=== PATIENT | male | born 1980 | race Caucasian/White ===

== ENCOUNTER 2016-08-22 08:43 | Emergency (ER) | payer OTHER ==
[2016-08-22] MEDS ORDERED: IBUPROFEN 600 MG TABLET PO STA (09:41)
[2016-08-22] MEDS ORDERED: ACETAMINOPHEN 325 MG TABLET PO STA (09:41)
[2016-08-22] MEDS ORDERED: IBUPROFEN 600 MG TABLET PO ONE (09:43)
[2016-08-22] MEDS ORDERED: ACETAMINOPHEN 325 MG TABLET PO ONE (09:43)
== END 2016-08-22 12:14 | disposition home or self-care (01) ==
DX: S20.212A Contusion of left front wall of thorax, initial encounter (principal); W55.22XA Struck by cow, initial encounter; Y92.79 Other farm location as the place of occurrence of the external cause; Y99.0 Civilian activity done for income or pay; F17.200 Nicotine dependence, unspecified, uncomplicated; S30.1XXA Contusion of abdominal wall, initial encounter
CPT/HCPCS: 1040M; 71250; 74176; 99283; 99284; A9270

== ENCOUNTER 2016-10-26 10:00 | Outpatient (CLI) | payer OTHER ==
--- NOTE | 2016-10-26 15:51 | MRI Report ---
EXAM: LEFT SHOULDER MRI WITHOUT CONTRAST EXAM DATE: 10/26/2016 08:58 AM. CLINICAL HISTORY: CRUSH/CONTUSION L CHEST BELOW SHOULDER. COMPARISON: None. TECHNIQUE: Multiplanar, multisequence T1-weighted and fluid-sensitive sequences of the shoulder witho ut contrast. Other: None. FINDINGS: Rotator cuff: Rotator cuff tendons appear intact without evidence of significant tendinosis or rotato r cuff tear. No rotator cuff muscle atrophy or fatty replacement. Long head biceps tendon: Intact demonstrating normal course, signal and morphology. Labrum: Intact. No tear is identified. Bones and articular surfaces: No significant articular cartilage abnormalities are seen. There are mu ltiple partially visualized healing posterolateral and lateral upper left rib fractures. Acromioclavicular joint: Unremarkable appearance. Type II acromion. IMPRESSION: 1. Multiple healing posterior and lateral upper left rib fractures partially visualized. 2. Otherwise normal shoulder MRI. [facility] SE[facility] Referring Provider Line: [phone] SITE ID: [id number]
== END 2016-10-26 10:15 ==
LOC: DI 10:00
PROVIDERS: ATTEND Family Medicine
DX: S22.42XA Multiple fractures of ribs, left side, initial encounter for closed fracture (principal)

== ENCOUNTER 2017-09-04 19:43 | Emergency (ER) | payer MEDICAID ==
--- NOTE | 2017-09-04 20:34 | XRAY Preliminary Report ---
Exam: XR WRIST 4 VIEW RT IMPRESSION: Acute comminuted impacted right distal radius fracture with moderate dorsal displacement and angulation. [facility] SITE ID: [id number]
--- NOTE | 2017-09-04 20:34 | XRAY Report ---
EXAM: RIGHT WRIST RADIOGRAPHY EXAM DATE: 09/04/2017 08:16 PM. CLINICAL HISTORY: Fall.Wrist pain. COMPARISON: None. TECHNIQUE: 4 views. FINDINGS: Acute comminuted impacted right distal radius fracture with moderate dorsal displacement an d angulation. Adjacent soft tissue swelling. No dislocation. IMPRESSION: Acute comminuted impacted right distal radius fracture with moderate dorsal displacement and angulation. [facility] Referring Provider Line: [phone] SITE ID: [id number]
[2017-09-04] MEDS ORDERED: oxyCODONE/ACET 5/325 Prepack 4 PO STA (21:15)
--- NOTE | 2017-09-04 21:17 | ED Physician Documentation ---
PD HPI UPPER EXT INJURY - Stated complaint Stated Complaint: WRIST INJURY - Chief complaint Chief Complaint: Trauma Ext - History obtained from History obtained from: Patient - History of Present Illness Location: Right, Wrist Type of injury: Fall Where injury occurred: Home Timing - onset: Today Timing - details: Abrupt onset Worsened by: Moving, Palpating Similar symptoms before: Has not had sx before Recently seen: Not recently seen - Additonal information Additional information: Patient is a 37 year old male presenting to the emergency department for right sided wrist pain. Patient was mowing his yard and the mower was on a hill and tipped, he started to fall so he put his arm out to stop himself and landed on his wrist. Patient denies any other trauma at this time. Review of Systems Ten Systems: 10 systems reviewed and negative Musculoskeletal: reports: Extremity pain, Joint pain, Extremity swelling, Joint swelling Neurologic: denies: Numbness PD PAST MEDICAL HISTORY - Past Medical History Past Medical History: No Musculoskeletal: Other - Past Surgical History Past Surgical History: Yes - Present Medications Home Medications: Ambulatory Orders Medication Instructions Recorded Confirmed Oxycodone HCl/Acetaminophen 1 - 2 each PO Q6H PRN #10 tablet 09/04/17 [Percocet 5-325 mg Tablet] - Allergies Allergies/Adverse Reactions: Allergies Allergy/AdvReac Type Severity Reaction Status Date / Time Cephalosporins Allergy Respiratory Verified 09/04/17 20:45 - Social History Does the pt smoke?: Yes Smoking Status: Current every day smoker Does the pt drink ETOH?: No Does the pt have substance abuse?: No - Immunizations Immunizations are current?: Yes - POLST Patient has POLST: No PD ED PE NORMAL - Vitals Vital signs reviewed: Yes - General General: Alert and oriented X 3 - HEENT HEENT: Atraumatic - Cardiac Cardiac: RRR - Respiratory Respiratory: No respiratory distress - Abdomen Abdomen: Non distended - Derm Derm: Normal color - Neuro Neuro: Alert and oriented X 3 PD ED PE EXPANDED - Cardiac Cardiac: Normal pulses, Radial strong equal. No: Prolonged cap refill - Extremities Extremities: Right wrist (tenderness swelling and deformity of rigth wrist), Motor intact, Sensory intact, Vascular intact, Tendon intact Results - Vitals Vitals: Vital Signs - 24 hr 09/04/17 19:56 Temperature 36.0 C L Heart Rate 105 H Respiratory 18 Rate Blood Pressure 175/118 H O2 Saturation 98 Oxygen O2 Source Room air - Rads (name of study) right wrist Radiology: Final report received (distal radial fracture) PD MEDICAL DECISION MAKING - ED course Complexity details: reviewed old records, reviewed results, re-evaluated patient , considered differential, d/w patient ED course: Patient was seen and examined at bedside. Patient was sent for imaging. When patient returned the results were reviewed. patient was found to have a distal radial fracture. patient was neurovascularly intact. Patient was placed in a sugar tong splint and was stable for discharge with orthopedic follow up. Departure - Departure Disposition: Home, Self Care Clinical Impression: Distal radius fracture, right Condition: Good Instructions: ED Fx Forearm Radius Ulna No Redu Requ Follow-Up: Fox Mccarthy MD [Provider Admit Priv/Credential] - Prescriptions: Oxycodone HCl/Acetaminophen [Percocet 5-325 mg Tablet] 1 - 2 each PO Q6H PRN # 10 tablet PRN Reason: pain Comments: Your symptoms today are being caused by a fracture of your radius. You were placed in a splint but you will need to follow up with the orthopedic doctor. You should continue to elevate you wrist and ice the area at least 4 times a day. You can take tylenol for pain, and percocet for breakthrough pain. You may return to the emergency department at any time for new, worsening or uncontrollable symptoms.
[2017-09-04 21:39] VITALS: BP 157/111
== END 2017-09-04 21:33 | disposition home or self-care (01) ==
LOC: ED 19:43
DX: S52.501A Unspecified fracture of the lower end of right radius, initial encounter for closed fracture (principal); W17.89XA Other fall from one level to another, initial encounter; Y93.H9 Activity, other involving exterior property and land maintenance, building and construction; Y92.017 Garden or yard in single-family (private) house as the place of occurrence of the external cause; F17.200 Nicotine dependence, unspecified, uncomplicated
CPT/HCPCS: 29105; 99283

== ENCOUNTER 2017-09-21 05:58 | Day surgery (SDC) | payer MEDICAID ==
[2017-09-21] MEDS ORDERED: ceFAZolin 2 GM/50 ML 2 GM/50 ML BAG IV ONE (06:39)
[2017-09-21] MEDS ORDERED: SCOPOLAMINE PATCH TOP ONE (07:08)
[2017-09-21] MEDS ORDERED: LACTATED RINGERS 1,000 ML IV ONE ×2 (07:11→08:45)
[2017-09-21] MEDS ORDERED: BUPIVACAINE 0.5%-EPI 1:200000 PF 30 ML VIAL ONE (07:18)
[2017-09-21] MEDS ORDERED: CLINDAMYCIN 600 MG/50 ML 50 ML IV ONE (07:41)
[2017-09-21] MEDS ORDERED: BUPIVACAINE 0.5%-EPI 1:200000 PF 30 ML VIAL SUBQ ONE ×2 (08:02)
[2017-09-21] MEDS ORDERED: MIDAZOLAM 2 MG/2 ML VIAL IVP ONE (08:20)
[2017-09-21] MEDS ORDERED: ACETAMINOPHEN 1,000 MG/100 ML 100 ML IV ONE (08:20)
[2017-09-21] MEDS ORDERED: diphenhydrAMINE INJ 50 MG/ML VIAL IVP ONE (08:20)
[2017-09-21] MEDS ORDERED: DEXAMETHASONE 4 MG/ML VIAL IVP ONE (08:20)
[2017-09-21] MEDS ORDERED: ROCURONIUM 50 MG/5 ML VIAL IVP ONE (08:20)
[2017-09-21] MEDS ORDERED: KETOROLAC 30 MG/ML VIAL IVP ONE (08:20)
[2017-09-21] MEDS ORDERED: PROPOFOL 200 MG/20 ML VIAL IVP ONE (08:20)
[2017-09-21] MEDS ORDERED: ONDANSETRON 4 MG/2 ML VIAL IVP ONE (08:20)
[2017-09-21] MEDS ORDERED: METOCLOPRAMIDE 10 MG/2 ML VIAL IVP ONE (08:20)
[2017-09-21] MEDS ORDERED: fentaNYL 100 MCG/2 ML VIAL IVP ONE (08:20)
[2017-09-21] MEDS ORDERED: LIDOCAINE-MPF 2% 5 ML VIAL IM ONE (08:20)
[2017-09-21] MEDS: fentaNYL 100 MCG/2 ML VIAL ONE ×2 (09:25→09:40)
[2017-09-21] MEDS: LABETALOL 20 MG/4 ML SYRINGE IVP ONE ×2 (09:28→09:43)
[2017-09-21] MEDS ORDERED: HYDROcod/ACETAM 5/325 MG TABLET ONE (10:25)
[2017-09-21 10:49] VITALS: BP 154/98
--- NOTE | 2017-09-21 11:16 | OPERATIVE REPORT ---
DATE OF SERVICE: 09/21/2017 Physician: Patrica Pickens MD DATE OF SURGERY: 09/21/2017 PREOPERATIVE DIAGNOSIS: Right radius comminuted fracture. POSTOPERATIVE DIAGNOSIS: Right radius comminuted fracture. PROCEDURE PERFORMED: Open reduction, internal fixation of right distal radius. SURGEON: Patrica Pickens MD ANESTHESIA: General by Rashmi Hinds CRNA. INDICATIONS FOR SURGERY: Nick is a 37-year-old male who is status post a fall onto his outstretched right wrist causing a comminuted Colles fracture. The patient's fracture was malpositioned, angulated, and shortened and surgery was recommended for rastafari of more normal anatomy. FINDINGS AT SURGERY: The patient's fracture was significantly impacted and was somewhat difficult to reduce, but was able to be restored as far as length and alignment fairly well. OPERATIVE PROCEDURE: The patient was taken to the operating room and was given a general anesthetic. He was given clindamycin IV. His forearm and hand were sterilely prepped and draped in standard fashion. A tourniquet pressure of 250 selected and under tourniquet control for 37 minutes the surgery was undertaken with a volar radial 3-1/2 inch incision directly over the flexor carpi radialis and dissection beneath this directly down to the pronator quadratus and below this to the wrist capsule and the volar radius. The fracture was identified and soft tissue removed for better visualization and pronator reflected away. The fracture was ultimately able to be reduced by using a Lipan elevator to leverage the fragment back into its anatomic length and alignment. There was some comminution with the distal aspect of the fracture represented by 3 main components in the proximal shaft. The DVR system was used selecting a fairly long plate, but a narrow one distally and applying this to the volar radius, using it as a corrective device for volar tilt, applying it with screws distally and then leveraging and lowering the plate down to the radius to cause correction of volar tilt. The plate was fixed initially with nonlocking screws proximal and distal and then proceeding afterwards to locking both proximal and distal. Screw lengths were carefully measured and position of the fracture was observed with the C-arm. Satisfactory alignment and fixation were achieved. The wound was irrigated thoroughly. The pronator quadratus was repaired back with Vicryl suture, skin with interrupted Vicryl suture and Monocryl and after this sterile dressing and a sugar-tong splint were applied. The patient was taken to recovery room in stable condition. ESTIMATED BLOOD LOSS: The estimated blood loss for the procedure was very minimal, less than 10 mL COMPLICATIONS: None. COUNTS: Sponge and needle counts were correct. TD: 09/21/2017 10:25
== END 2017-09-21 05:59 | disposition home or self-care (01) ==
LOC: SDS 05:58
PROVIDERS: ATTEND Orthopaedic Surgery
PROC: 0PSH04Z Reposition Right Radius with Internal Fixation Device, Open Approach (ICD-10-PCS; principal; 2017-09-21 07:30)
DX: S52.531A Colles' fracture of right radius, initial encounter for closed fracture (principal)
CPT/HCPCS: 25609; A9270; C1713; J0131; J1200; J2765; J3490; J7120

== ENCOUNTER 2020-10-11 15:41 | Emergency (ER) | payer MEDICAID ==
[2020-10-11] MEDS ORDERED: LORazepam 1 MG TABLET PO STA (15:58)
[2020-10-11] MEDS ORDERED: SODIUM CHLORIDE 0.9% 1,000 ML IV STA (15:58)
--- NOTE | 2020-10-11 16:01 | ED Physician Documentation ---
History of Present Illness - Stated complaint Stated Complaint: CHEST PAIN, - Additonal information Additional information: 40-year-old male presents the emergency department for evaluation of chest tightness left shoulder discomfort and feeling anxious. He states that he has not been feeling well for quite some time and worries that he may be having a panic attack but the left shoulder discomfort caused him concern. He took 2 Excedrin about an hour prior to arrival. He denies dyspnea on exertion or chest pain in particular. He is a heavy tobacco user and moderate drinker. Denies a history of hypertension coronary artery disease. Denies a family history of sudden or early cardiac disease coronary . Review of Systems Constitutional: denies: Fever, Chills Eyes: reports: Reviewed and negative Ears: reports: Reviewed and negative Nose: reports: Reviewed and negative Throat: reports: Reviewed and negative Cardiac: reports: Palpitations. denies: Pedal edema, Calf pain Respiratory: denies: Dyspnea, Cough GI: reports: Nausea, Vomiting. denies: Abdominal Pain : denies: Dysuria, Frequency, Hesitancy Skin: denies: Rash, Lesions Musculoskeletal: denies: Neck pain, Back pain Neurologic: denies: Generalized weakness, Focal weakness, Numbness Psychiatric: reports: Anxiety PD PAST MEDICAL HISTORY - Past Medical History Cardiovascular: None Respiratory: None Endocrine/Autoimmune: None GI: None : None HEENT: None Psych: Anxiety Musculoskeletal: None Derm: None - Past Surgical History Past Surgical History: Yes Ortho: Other - Present Medications Home Medications: Ambulatory Orders Medication Instructions Recorded Confirmed Aspirin/Acetaminophen/Caffeine 3 tab PO DAILY PRN 10/11/20 10/11/20 [Excedrin Migraine Caplet] Lisinopril [Zestril] 10 mg PO DAILY #30 tablet 10/11/20 hydrOXYzine HCL [Hydroxyzine HCl] 25 mg PO TID PRN #30 tablet 10/11/20 - Allergies Allergies/Adverse Reactions: Allergies Allergy/AdvReac Type Severity Reaction Status Date / Time Cephalosporins Allergy Respiratory Verified 10/11/20 16:08 - Social History Does the pt smoke?: Yes Smoking Status: Current every day smoker Does the pt drink ETOH?: No Does the pt have substance abuse?: No - Immunizations Immunizations are current?: Yes - POLST Patient has POLST: No PD ED PE EXPANDED - General General: Alert, Disheveled, poorly kept, Other (diaphoretic) - Neck Neck: Supple w/out meningeal sx. No: Adenopathy - Cardiac Cardiac: Tachy, Radial strong equal, Cap refill < 2 sec. No: Murmur Present - Respiratory Respiratory: Clear to ausultation kirit. No: Distress, Labored - Abdomen Abdomen: Normal Bowel sounds. No: Tender to palpation - Extremities Extremities: Normal. No: Deformity, Tenderness, Pedal edema bilateral, Right calf TTP/cord, Left calf TTP/cord - Neuro Neuro: Alert and Oriented X 3, CNII-XII intact - GCS Eye Opening: Spontaneous Motor: Obeys Commands Verbal: Oriented Total: 15 - Psych Psych: Anxious, Pressured speech Results - Vitals Vitals: Vital Signs - 24 hr 10/11/20 10/11/20 10/11/20 15:42 16:09 16:28 Temperature 37.1 C Heart Rate 124 H 108 H 103 H Respiratory 22 15 10 L Rate Blood Pressure 178/100 H 189/113 H 170/110 H O2 Saturation 96 97 10/11/20 10/11/20 16:55 17:31 Temperature 37.0 C Heart Rate 106 H 106 H Respiratory 16 16 Rate Blood Pressure 165/120 H 179/114 H O2 Saturation 99 97 Oxygen O2 Source Room air - EKG (time done) 1547 Rate: Rate (enter#) (121) Rhythm: Sinus tachycardia [place]: Normal Intervals: Normal AL. No: Prolonged QT QRS: LVH Ischemia: Normal ST segments Compare to prior EKG: Old EKG unavailable Computer interpretation: Agree with computer - Labs Labs: Laboratory Tests 10/11/20 10/11/20 10/11/20 16:00 16:00 16:00 WBC 10.4 RBC 4.90 Hgb 15.7 Hct 46.4 MCV 94.7 H MCH 32.0 H MCHC 33.8 RDW 12.3 Plt Count 298 MPV 9.9 Neut # (Auto) 7.4 H Lymph # (Auto) 2.1 Taney # (Auto) 0.8 Eos # (Auto) 0.0 Baso # (Auto) 0.1 Absolute Nucleated RBC 0.00 Nucleated RBC % 0.0 D-Dimer Sodium 134 L Potassium 3.9 Chloride 97 L Carbon Dioxide 24 Anion Gap 13.0 BUN 11 Creatinine 0.8 Estimated GFR (MDRD) 107 Glucose 226 H Calcium 9.0 Total Bilirubin 0.7 AST 38 ALT 46 Alkaline Phosphatase 98 Troponin I High Sens 6.9 Total Protein 8.5 H Albumin 3.7 Globulin 4.8 H Albumin/Globulin Ratio 0.8 L Lipase 30 10/11/20 16:05 WBC RBC Hgb Hct MCV MCH MCHC RDW Plt Count MPV Neut # (Auto) Lymph # (Auto) Taney # (Auto) Eos # (Auto) Baso # (Auto) Absolute Nucleated RBC Nucleated RBC % D-Dimer 207.4 Sodium Potassium Chloride Carbon Dioxide Anion Gap BUN Creatinine Estimated GFR (MDRD) Glucose Calcium Total Bilirubin AST ALT Alkaline Phosphatase Troponin I High Sens Total Protein Albumin Globulin Albumin/Globulin Ratio Lipase - Rads (name of study) CXR Radiology: Final report received (normal for age) PD MEDICAL DECISION MAKING - ED course Complexity details: reviewed results, re-evaluated patient, d/w patient ED course: 40-year-old male presents to the emergency department for acute anxiety palpitations, diaphoresis and nausea. He is a heavy tobacco user as well as a moderate alcohol user. 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 Screening EKG shows a sinus tachycardia initially with a rate of 120. Prominent LVH but no ischemic changes. High-sensitivity troponin is negative. He had no pleuritic chest pain but given tachycardia could not rule out PE. Therefore a D-dimer was completed and it is not elevated. The patient was given 1 mg of Ativan which markedly reduced his anxiety and dropped his resting heart rate to just above 100. He was noted to be fairly hypertensive here in the emergency department. He was given 10 mg of lisinopril. Screening labs show no acute worrisome electrolyte abnormality though it is noted that he is hyperglycemic. However no findings to suggest hypertensive urgency/emergency. Normal renal function. No encephalopathy headache chest pain. I discussed with the patient that he should have testing to include a hemoglobin A1c to determine if he has diabetes given hyperglycemia. This gentleman will be started on lisinopril 10 mg daily as well as as needed hydroxyzine to help with anxiety. Advised very close follow-up with the [facility] clinic to establish care. Patient advised to discontinue tobacco when able. Emergent return precautions were discussed for chest pain, shortness of air, uncontrolled nausea vomiting or suddenly severe headache. Departure - Departure Disposition: 01 Home, Self Care Clinical Impression: Anxiety, Tachycardia, Hyperglycemia Hypertension Qualifiers: Hypertension type: unspecified Qualified Code(s): I10 - Essential (primary) hypertension Condition: Stable Record reviewed to determine appropriate education?: Yes Instructions: Hypertension Control, ED Anxiety Reaction Ch Follow-Up: [facility] [Provider Group] Prescriptions: hydrOXYzine HCL [Hydroxyzine HCl] 25 mg PO TID PRN #30 tablet PRN Reason: Anxiety Lisinopril [Zestril] 10 mg PO DAILY #30 tablet Comments: Nick you were seen today in the emergency department for palpitations, chest discomfort and anxiety. Your screening EKG does not show signs that you are having a heart attack though there are changes that are consistent with long-term high blood pressure. Your blood pressure is elevated today in the emergency department. Please fill the prescription for the lisinopril and begin taking once daily as directed. Your chest x-ray does not show any worrisome abnormalities. Your screening labs were essentially normal including the labs to check for a heart attack or a blood clot in your lungs. The only worrisome abnormality was an elevated blood glucose of 226. This can be a stress reaction but you should be checked for diabetes. Please schedule an appointment at [facility] to establish care and be rechecked within 1 to 2 weeks. It is going to be important in the long-term that you discontinue tobacco use. You may need to be referred for an outpatient echocardiogram or stress test of your heart but that does not need to be completed today. I have prescribed a medication called hydroxyzine. It can be used 2-3 times a day to help with stress and panic. Please use cautiously it can make you somewhat sleepy And possibly unsafe to drive. If at any point you are developing chest pain, have uncontrolled vomiting or anxiety please return to the ER. Discharge Date/Time: 10/11/20 17:33
[2020-10-11 16:04] LABS: BASOPHILS # (AUTO) 0.1 10^3/uL (0.0-0.1); BASOPHILS % (AUTO) 0.6 %; EOSINOPHILS % (AUTO) 0.3 %; HCT - HEMATOCRIT 46.4 % (42.0-52.0); HGB - HEMOGLOBIN 15.7 g/dL (14.0-18.0); LYMPHOCYTES # (AUTO) 2.1 10^3/uL (1.5-3.5); LYMPHOCYTES % (AUTO) 20.4 %; MEAN CORPUSCULAR HGB CONC 33.8 g/dL (32.0-36.0); MEAN CORPUSCULAR VOLUME 94.7 fL (80.0-94.0); MEAN PLATELET VOLUME 9.9 fL (7.4-11.4); MONOCYTES # (AUTO) 0.8 10^3/uL (0.0-1.0); MONOCYTES % (AUTO) 7.7 %; NEUTROPHILS # (AUTO) 7.4 10^3/uL (1.5-6.6); NEUTROPHILS % (AUTO) 70.7 %; PLT - PLATELET COUNT 298 10^3/uL (130-450); RED CELL DISTRIBUTION WIDTH 12.3 % (12.0-15.0); WHITE BLOOD COUNT 10.4 x10^3/uL (4.8-10.8)
--- NOTE | 2020-10-11 16:23 | XRAY Report ---
PROCEDURE: Chest 1 View X-Ray INDICATIONS: Chest Pain TECHNIQUE: One view of the chest was acquired. COMPARISON: Correlation is made with prior chest CT 08/22/2016 FINDINGS: Surgical changes and devices: None. Lungs and pleura: On the semiupright images, no large pneumothorax or large pleural effusions can be seen. No focal infiltrates are seen. Mediastinum: Mediastinal contours appear normal. Heart size is normal. Bones and chest wall: No suspicious bony lesions. Overlying soft tissues appear unremarkable. IMPRESSION: Portable chest within normal limits for age. Reviewed by: Sheldon Gaffney MD on 10/11/2020 3:21 PM AKFERCHO Approved by: Sheldon Gaffney MD on 10/11/2020 3:21 PM AKFERCHO Station ID: [id number]
[2020-10-11 16:25] LABS: ALBUMIN 3.7 g/dL (3.2-5.5); ALBUMIN/GLOBULIN RATIO 0.8 (1.0-2.2); BILIRUBIN,TOTAL 0.7 mg/dL (0.2-1.0); CREATININE 0.8 mg/dL (0.6-1.2); POTASSIUM 3.9 mmol/L (3.5-5.0); TOTAL PROTEIN 8.5 g/dL (6.7-8.2)
--- OUTSIDE RECORDS SUMMARY | 2020-10-11 16:30 | EXTERNAL MEDICAL SUMMARY RPT | Continuity of Care Document ---
:1980 Demographics Phone Unavailable Preferred Language Unknown Marital Status Unknown Quaker Affiliation Unknown Race Unknown Ethnic Group Unknown Author Organization [place] Address [address] [place] [address] Phone Allergies Encounters Medications Problems Results
[2020-10-11] MEDS ORDERED: lisinopriL 5 MG TABLET PO STA (16:33)
[2020-10-11 17:33] VITALS: BP 179/114
== END 2020-10-11 17:33 | disposition home or self-care (01) ==
LOC: ED 15:41
DX: I10 Essential (primary) hypertension (principal); R00.0 Tachycardia, unspecified; F41.9 Anxiety disorder, unspecified; R73.9 Hyperglycemia, unspecified; Z72.0 Tobacco use
CPT/HCPCS: 36415; 71045; 80053; 83690; 84484; 85025; 85379; 93005; 96360; 99283; 99284; A9270; J8499

== ENCOUNTER 2020-11-07 12:25 | Outpatient (CLI) | payer MEDICAID ==
--- NOTE | 2020-11-07 15:52 | XRAY Report ---
PROCEDURE: Ankle 3 View LT INDICATIONS: ANKLE INJURY TODAY TECHNIQUE: 3 views of the ankle were acquired. COMPARISON: None FINDINGS: Bones: There is a mildly to moderately displaced fracture seen of the distal fibula, which is seen at the level of the syndesmosis. The syndesmosis appears minimally widened. There is minimal widening o f ankle mortise. No suspicious bony lesions. The talar dome demonstrates an unremarkable appearance . An accessory ossicle is seen, an os trigonum. Soft tissues: Soft tissue swelling is seen, which is most prominent laterally. IMPRESSION: Mildly to moderately displaced distal fibular fracture, with minimal associated widening of the syndesmosis and ankle mortise. Reviewed by: Sheldon Gaffney MD on 11/07/2020 2:51 PM DEMI Approved by: Sheldon Gaffney MD on 11/07/2020 2:51 PM DEMI Station ID: [id number]
== END 2020-11-07 12:26 | disposition home or self-care (01) ==
LOC: DI.N 12:25
PROVIDERS: ATTEND Physician Assistant Medical
DX: S82.832A Other fracture of upper and lower end of left fibula, initial encounter for closed fracture (principal)

== ENCOUNTER 2020-12-21 13:45 | Outpatient (CLI) | payer MEDICAID ==
--- NOTE | 2020-12-21 14:36 | XRAY Report ---
PROCEDURE: Ankle 3 View LT INDICATIONS: OTHER FX OF LEFT LOWER LEG TECHNIQUE: 3 views of the ankle were acquired. COMPARISON: X-ray left ankle, 3 views, 11/07/2020. FINDINGS: Bones: There is a nondisplaced oblique fracture in the distal fibula. Mild callus formation is presen t, consistent with healing. The alignment is stable. Ankle mortise is normally aligned. No suspicio us bony lesions. Soft tissues: No tibiotalar joint effusion. Achilles tendon appears normal. IMPRESSION: Healing fracture of the distal fibula. Reviewed by: Camron Miles MD on 12/21/2020 2:34 PM PDT Approved by: Camron Miles MD on 12/21/2020 2:34 PM PDT Station ID: [id number]
== END 2020-12-21 23:59 | disposition home or self-care (01) ==
LOC: DI.N 13:45
PROVIDERS: ATTEND Orthopaedic Surgery
DX: S82.832D Other fracture of upper and lower end of left fibula, subsequent encounter for closed fracture with routine healing (principal)

== ENCOUNTER 2021-01-05 14:08 | Emergency (ER) | payer MEDICAID ==
[2021-01-05] MEDS ORDERED: LORazepam 1 MG TABLET PO STA (14:28)
--- NOTE | 2021-01-05 14:44 | ED Physician Documentation ---
History of Present Illness - Stated complaint Stated Complaint: CHEST PX - Chief complaint Chief Complaint: Cardiac - Additonal information Additional information: 40-year-old male presents the emergency department for evaluation of anxiety and chest pain. He reports that his stomach has been upset and has had diarrhea. 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 He was unable to get a primary care appointment until late December. I did see this gentleman for anxiety and chest pain in mid September. His EKG at that time was nonischemic. He was advised to resume his lisinopril for his history of hypertension. Patient just states that he does not feel well. He is unsure what is wrong however. He is requesting lorazepam before we attempt to the IV blood draw. Review of Systems Constitutional: denies: Fever, Myalgias Eyes: reports: Reviewed and negative Ears: reports: Reviewed and negative Nose: reports: Reviewed and negative Throat: reports: Reviewed and negative Cardiac: reports: Chest pain / pressure, Palpitations. denies: Pedal edema, Calf pain Respiratory: denies: Dyspnea, Cough GI: reports: Vomiting, Diarrhea. denies: Abdominal Pain : denies: Dysuria, Frequency, Hesitancy Skin: reports: Reviewed and negative Musculoskeletal: reports: Reviewed and negative Neurologic: reports: Reviewed and negative Psychiatric: reports: Anxiety PD PAST MEDICAL HISTORY - Past Medical History Past Medical History: Yes Cardiovascular: Hypertension Respiratory: None Endocrine/Autoimmune: None GI: None : None HEENT: None Psych: Anxiety Musculoskeletal: Other Derm: None - Past Surgical History Past Surgical History: Yes Ortho: Other - Present Medications Home Medications: Ambulatory Orders Medication Instructions Recorded Confirmed Aspirin/Acetaminophen/Caffeine 3 tab PO DAILY PRN 10/11/20 01/05/21 [Excedrin Migraine Caplet] Lisinopril [Zestril] 10 mg PO DAILY #30 tablet 10/11/20 01/05/21 Omeprazole 40 mg PO DAILY #30 01/05/21 hydrOXYzine HCL [Hydroxyzine HCl] 25 mg PO TID PRN #20 tablet 01/05/21 - Allergies Allergies/Adverse Reactions: Allergies Allergy/AdvReac Type Severity Reaction Status Date / Time Cephalosporins Allergy Respiratory Verified 01/05/21 14:11 - Social History Does the pt smoke?: Yes Smoking Status: Current every day smoker Does the pt drink ETOH?: Yes Does the pt have substance abuse?: Yes Substance Use and Type: Marijuana - Immunizations Immunizations are current?: Yes - POLST Patient has POLST: No PD ED PE EXPANDED - General General: Alert, No acute distress, Well developed/nourished - Neck Neck: Supple w/out meningeal sx. No: Adenopathy - Cardiac Cardiac: Regular Rate, Radial strong equal, Cap refill < 2 sec. No: Murmur Present - Respiratory Respiratory: Clear to ausultation kirit. No: Distress, Labored - Abdomen Abdomen: Normal Bowel sounds. No: Tender to palpation - Derm Derm: Normal color, Warm and dry. No: Rash Results - Vitals Vitals: Vital Signs - 24 hr 01/05/21 14:12 Temperature 36.5 C Heart Rate 103 H Respiratory 20 Rate Blood Pressure 187/124 H O2 Saturation 100 Oxygen O2 Source Room air - EKG (time done) 1412 Rate: Rate (enter#) (106) Rhythm: Sinus tachycardia [place]way: Normal Intervals: Normal VT, Prolonged QT Ischemia: Non specific changes Compare to prior EKG: Unchanged from prior EKG Computer interpretation: Agree with computer - Labs Labs: Laboratory Tests 01/05/21 01/05/21 01/05/21 15:15 15:15 15:15 WBC 9.4 RBC 4.31 L Hgb 13.9 L Hct 40.1 L MCV 93.0 MCH 32.3 H MCHC 34.7 RDW 11.9 L Plt Count 368 MPV 9.7 Neut # (Auto) 7.0 H Lymph # (Auto) 1.6 Love # (Auto) 0.7 Eos # (Auto) 0.0 Baso # (Auto) 0.1 Absolute Nucleated RBC 0.00 Nucleated RBC % 0.0 Sodium 130 L Potassium 4.0 Chloride 94 L Carbon Dioxide 24 Anion Gap 12.0 BUN 14 Creatinine 0.7 Estimated GFR (MDRD) 124 Glucose 192 H Calcium 9.4 Total Bilirubin 0.7 AST 18 ALT 20 Alkaline Phosphatase 80 Troponin I High Sens 4.5 Total Protein 8.0 Albumin 3.7 Globulin 4.3 H Albumin/Globulin Ratio 0.9 L Lipase 31 - Rads (name of study) CXR Radiology: Final report received (no acute cardiopulmonary process) PD MEDICAL DECISION MAKING - ED course Complexity details: reviewed results, re-evaluated patient, considered differential, d/w patient ED course: This is a very well-appearing 40-year-old male who is quite anxious and presents the emergency department for evaluation of left upper chest pain. Described as pressure-like and nonradiating. 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 His screening EKG today is nonischemic and unchanged from his September visit. He does have an appointment within the next month to follow-up with his primary care provider. High-sensitivity troponin is negative today. Chest x-ray is also unrevealing certainly no focal signs of pneumonia no pneumothorax or cardiomegaly. he is also reporting some diarrhea intermittently fro a few days with fatigue. no abdominal pain pain. Given that he is unvacc inated for COVID-19 a COVID-19 screen is pending. This gentleman is quite anxious though that did improve with lorazepam. We discussed that anxiety can contribute to pain as well as some of the minor stomach discomfort. We will also recommend omeprazole. Worrisome return precautions were discussed for syncope, leg swelling, and exertional shortness of air Departure - Departure Disposition: Home, Self Care Clinical Impression: Anxiety Chest pain Qualifiers: Chest pain type: unspecified Qualified Code(s): R07.9 - Chest pain, unspecified Condition: Stable Record reviewed to determine appropriate education?: Yes Instructions: ED Chest Pain Atypical Unkn Cause Prescriptions: hydrOXYzine HCL [Hydroxyzine HCl] 25 mg PO TID PRN #20 tablet PRN Reason: Anxiety Omeprazole 40 mg PO DAILY #30 Comments: Nick you are seen today in the ER for some anxiety as well as chest pains. Your chest x-ray is unremarkable. Your EKG does not show signs that you are having a heart attack. Your screening labs also did not show any concerns of stress with your heart. However given your history of high blood pressure as well as tobacco use you are higher risk for heart disease so it is very important you follow-up with your primary care doctor. You may benefit from an outpatient stress test and/or echocardiogram. However stress can cause a lot of the symptoms you are having such as the diarrhea and the chest pain. I have prescribed hydroxyzine that you can take 2- 3 times a day for anxiety. I do recommend periods of meditation and quiet time to see if that can help improve your symptoms. A COVID-19 test is pending for you today. We will notify you only if it is positive.
--- NOTE | 2021-01-05 14:49 | XRAY Report ---
PROCEDURE: Chest 1 View X-Ray INDICATIONS: Chest Pain TECHNIQUE: One view of the chest was acquired. COMPARISON: 10/11/2020 FINDINGS: Surgical changes and devices: None. Lungs and pleura: No pleural effusions or pneumothorax. Lungs are clear. Mediastinum: Mediastinal contours appear normal. Heart size is normal. Bones and chest wall: No suspicious bony lesions. Overlying soft tissues appear unremarkable. IMPRESSION: No acute cardiopulmonary disease process. Reviewed by: Quyen Miller MD, PhD on 01/05/2021 2:48 PM PDT Approved by: Quyen Miller MD, PhD on 01/05/2021 2:48 PM PDT Station ID: [id number]
[2021-01-05 15:26] LABS: BASOPHILS # (AUTO) 0.1 10^3/uL (0.0-0.1); BASOPHILS % (AUTO) 0.5 %; EOSINOPHILS % (AUTO) 0.3 %; HCT - HEMATOCRIT 40.1 % (42.0-52.0); HGB - HEMOGLOBIN 13.9 g/dL (14.0-18.0); LYMPHOCYTES # (AUTO) 1.6 10^3/uL (1.5-3.5); LYMPHOCYTES % (AUTO) 16.6 %; MEAN CORPUSCULAR HEMOGLOBIN 32.3 pg (27.0-31.0); MEAN CORPUSCULAR HGB CONC 34.7 g/dL (32.0-36.0); MEAN PLATELET VOLUME 9.7 fL (7.4-11.4); MONOCYTES # (AUTO) 0.7 10^3/uL (0.0-1.0); MONOCYTES % (AUTO) 7.2 %; PLT - PLATELET COUNT 368 10^3/uL (130-450); RED BLOOD COUNT 4.31 10^6/uL (4.70-6.10); RED CELL DISTRIBUTION WIDTH 11.9 % (12.0-15.0); WHITE BLOOD COUNT 9.4 x10^3/uL (4.8-10.8)
[2021-01-05 15:34] LABS: ALBUMIN 3.7 g/dL (3.2-5.5); ALBUMIN/GLOBULIN RATIO 0.9 (1.0-2.2); BILIRUBIN,TOTAL 0.7 mg/dL (0.2-1.0); CALCIUM 9.4 mg/dL (8.5-10.3); CREATININE 0.7 mg/dL (0.6-1.2)
[2021-01-05 16:29] VITALS: BP 117/107
== END 2021-01-05 16:35 | disposition home or self-care (01) ==
LOC: ED 14:08
DX: F41.9 Anxiety disorder, unspecified (principal); F43.9 Reaction to severe stress, unspecified; R07.9 Chest pain, unspecified; R00.0 Tachycardia, unspecified; R19.7 Diarrhea, unspecified; R53.83 Other fatigue; Z20.822 Contact with and (suspected) exposure to COVID-19; I10 Essential (primary) hypertension; F17.200 Nicotine dependence, unspecified, uncomplicated; Z79.82 Long term (current) use of aspirin
CPT/HCPCS: 36415; 71045; 80053; 83690; 84484; 85025; 87635; 93005; 99283; 99284; J8499

== ENCOUNTER 2021-01-11 13:48 | Outpatient (CLI) | payer MEDICAID ==
--- NOTE | 2021-01-12 09:15 | XRAY Report ---
PROCEDURE: Ankle 3 View BILAT INDICATIONS: FX OF L LOWER LEG TECHNIQUE: 3 views of both ankles were performed. COMPARISON: None FINDINGS: Bones: 3 views of both ankles were performed. The right ankle has no fracture or dislocation. The rig ht ankle has no significant degenerative changes. There is an oblique fracture of the distal fibula w hich demonstrates healing. There is mild displacement of the fracture. Soft tissues: No tibiotalar joint effusion. Achilles tendon appears normal. IMPRESSION: 1. Healing fracture of the left distal fibula with mild displaced. 2. Normal right ankle. Reviewed by: Thom Wade on 01/12/2021 9:14 AM PDT Approved by: Thom Wade on 01/12/2021 9:14 AM PDT Station ID: [id number]
== END 2021-01-11 23:59 | disposition home or self-care (01) ==
LOC: DI.N 13:48
PROVIDERS: ATTEND Physician Assistant
DX: S82.892D Other fracture of left lower leg, subsequent encounter for closed fracture with routine healing (principal)